=== PATIENT | male | born 1935 | race African-American/Black ===

== ENCOUNTER 2018-06-04 14:25 | Inpatient (IN) | payer MEDICARE, OTHER ==
[~2018-06-04] VITALS: Ht 177.8 cm; Wt 51.3 kg
[2018-06-04] MEDS ORDERED: IV NORMAL SALINE 1000ML BAG 1,000 ML IV ONE (15:15)
[2018-06-04] MEDS ORDERED: ONDANSETRON PF 4 MG/2 ML VIAL. IV ONE (15:15)
[2018-06-04 15:23] LABS: BASO % 0 % (0-3); EOS % 1 % (0-3); HEMATOCRIT 43.3 % (39.0-53.0); HEMOGLOBIN 14.7 g/dL (13.0-17.5); LYMPH # 1.1 x10^3/uL (1.0-4.8); LYMPH % 14 % (24-48); MEAN CORPUSCULAR HEMOGLOBIN 30 pg (25-35); MEAN CORPUSCULAR HGB CONC 34 g/dL (31-37); MEAN CORPUSCULAR VOLUME 87 fL (79-100); MONO # 0.9 x10^3/uL (0.0-1.1); MONO % 12 % (0-9); NEUT # 5.8 x10^3uL (1.8-7.7); NEUT % 74 % (31-73); PLATELET COUNT 303 x10^3/uL (140-400); RED CELL DISTRIBUTION WIDTH 12.8 % (11.5-14.5); WHITE BLOOD COUNT 7.9 x10^3/uL (4.0-11.0)
[2018-06-04 15:34] LABS: CREATININE 1.2 mg/dL (0.7-1.3); POTASSIUM 3.9 mmol/L (3.5-5.1)
[2018-06-04 15:37] LABS: ALBUMIN 3.4 g/dL (3.4-5.0); ALBUMIN/GLOBULIN RATIO 0.9 (1.0-1.7); TOTAL BILIRUBIN 0.5 mg/dL (0.2-1.0); TOTAL PROTEIN 7.3 g/dL (6.4-8.2)
[2018-06-04] MEDS ORDERED: IOHEXOL 240 MG/ML 50ML VIAL. PO ONE (17:30)
[2018-06-04] MEDS ORDERED: CONTRAST GIVEN. MC PRN (17:30)
[2018-06-04] MEDS ORDERED: IOHEXOL 300 MG/ML 100ML VIAL. IV ONE (17:30)
[2018-06-04 18:16] LABS: BILIRUBIN,URINE NEGATIVE (NEG); CLARITY,URINE CLEAR; COLOR,URINE YELLOW; NITRITE,URINE NEGATIVE (NEG); PH,URINE 5.5; PROTEIN,URINE NEGATIVE (NEG-TRACE); UROBILINOGEN,URINE 0.2 mg/dL (0.2 mg/dL)
[2018-06-04 18:27] LABS: BACTERIA,URINE 0 /HPF (0-FEW); HYALINE CASTS, URINE MANY /HPF; RBC,URINE 0 /HPF (0-2); WBC,URINE OCC /HPF (0-4)
--- NOTE | 2018-06-04 18:33 | RAD ---
CT study of the abdomen and pelvis with contrast Clinical indications: Mid abdominal pain. TECHNIQUE: After IV infusion of 60 cc of Omnipaque 300, helical CT scanning of the abdomen and pelvis was performed. GI contrast was administered per mouth. PQRS compliance Statement One or more of the following individualized dose reduction techniques were utilized for this study: 1. Automated exposure control 2. Adjustment of the mA and/or kV according to patient size 3. Use of iterative reconstruction technique COMPARISON: None available. FINDINGS: Small hepatic cysts are seen. The gallbladder is normal and is not distended. However, there is dilatation of the biliary tree down into the common bile duct area. The common bile duct measures up to 11 mm in caliber. Main pancreatic duct is mildly prominent within the head of the pancreas as well measuring up to 3 mm in caliber. No pancreatic mass is seen. No adrenal gland mass is seen. Both kidneys are normal without hydronephrosis or renal mass. Urinary bladder wall is smooth. No obstructive bowel pattern is evident. No free intraperitoneal air or free fluid is seen. The appendix is not identified. There are no secondary CT findings of appendicitis. No lung base consolidation is evident. No lytic process is evident. IMPRESSION: Dilatation of the biliary tree down into the common bile duct with mild dilatation of the main pancreatic duct. This may be due to a distal common bile duct stone or obstruction. Electronically signed by: Lico Geiger MD (06/04/2018 6:30 PM) [facility]
--- NOTE | 2018-06-04 18:47 | PHYS DOC ---
Past Medical History Past Medical History: Hypertension (JOSE R FLYNNSANTA Almonte APRN) Past Surgical History: No Surgical History (JOSE R FLYNNSANTA Almonte APRN) Alcohol Use: None Drug Use: None (JOANNE FLYNNVERNA Almonte APRN) Adult General Chief Complaint Chief Complaint: Congestion HPI HPI Patient is a 82 year old male who presents with upper abdominal pain and nausea. The patient feels like he needs to spit up his secretions. He states that if he swallows his spit he becomes more nauseated. His family members state that he is normally extremely healthy and they are worried because he requested to come to the hospital tonight. The patient states that he generally does not feel well. He denies chest pain, constipation or diarrhea, coffee- ground emesis or fever. (RINAJOSE RLYNNSANTA Almonte APRN) Review of Systems Review of Systems Constitutional: Denies fever or chills [] Eyes: Denies change in visual acuity, redness, or eye pain [] HENT: Denies nasal congestion or sore throat [] Respiratory: Denies cough or shortness of breath [] Cardiovascular: No additional information not addressed in HPI [] GI: See history of present illness : Denies dysuria or hematuria [] Musculoskeletal: Denies back pain or joint pain [] Integument: Denies rash or skin lesions [] Neurologic: Denies headache, focal weakness or sensory changes [] Endocrine: Denies polyuria or polydipsia [] All other systems were reviewed and found to be within normal limits, except as documented in this note. (RINALYNNSANTA Almonte APRN) Current Medications Current Medications Current Medications Medications (Trade) Dose Ordered Sig/Evan Start Time Stop Time Status Last Admin Dose Admin Info (CONTRAST GIVEN -- Rx MONITORING) 1 each PRN DAILY PRN 06/04/18 17:30 06/06/18 17:29 Iohexol (Omnipaque 240 Mg/ml) 30 ml 1X ONCE 06/04/18 17:30 06/04/18 17:31 DC 06/04/18 17:40 30 ML Iohexol (Omnipaque 300 Mg/ml) 60 ml 1X ONCE 06/04/18 17:30 06/04/18 17:31 DC 06/04/18 17:40 60 ML Ondansetron HCl (Zofran) 4 mg 1X ONCE 06/04/18 15:15 3/8/19 15:52 DC 06/04/18 15:15 4 MG Sodium Chloride 1,000 ml @ 1,000 mls/hr 1X ONCE 06/04/18 15:15 06/04/18 16:14 DC 06/04/18 16:18 1,000 MLS/HR (LEANDRO CASTILLO MD) Allergies Allergies Allergies Coded Allergies Type Severity Reaction Last Updated Verified No Known Drug Allergies 06/04/18 No (LEANDRO CASTILLO MD) Physical Exam Physical Exam Constitutional: Well developed, well nourished, no acute distress, non-toxic appearance. [] Cardiovascular:Heart rate regular rhythm, no murmur [] Lungs & Thorax: Bilateral breath sounds clear to auscultation [] Abdomen: Bowel sounds normal, firm, epigastric tenderness, no masses, no pulsatile masses. [] Skin: Warm, dry, no erythema, no rash. [] Back: No tenderness, no CVA tenderness. [] Extremities: No tenderness, no cyanosis, no clubbing, ROM intact, no edema. [] Neurologic: Alert and oriented X 3, normal motor function, normal sensory function, no focal deficits noted. [] Psychologic: Affect normal, judgement normal, mood normal. [] (LYNN FLYNN APRN) Current Patient Data Vital Signs Vital Signs Date Time Temp Pulse Resp B/P (MAP) Pulse Ox O2 Delivery O2 Flow Rate FiO2 06/04/18 18:45 65 20 133/65 (87) 99 Room Air 06/04/18 14:45 97.8 97.8 (LEANDRO CASTILLO MD) Lab Values Laboratory Tests Test 06/04/18 15:17 06/04/18 18:09 White Blood Count 7.9 x10^3/uL (4.0-11.0) Red Blood Count 5.00 x10^6/uL (4.30-5.70) Hemoglobin 14.7 g/dL (13.0-17.5) Hematocrit 43.3 % (39.0-53.0) Mean Corpuscular Volume 87 fL (79-100) Mean Corpuscular Hemoglobin 30 pg (25-35) Mean Corpuscular Hemoglobin Concent 34 g/dL (31-37) Red Cell Distribution Width 12.8 % (11.5-14.5) Platelet Count 303 x10^3/uL (140-400) Neutrophils (%) (Auto) 74 % (31-73) H Lymphocytes (%) (Auto) 14 % (24-48) L Monocytes (%) (Auto) 12 % (0-9) H Eosinophils (%) (Auto) 1 % (0-3) Basophils (%) (Auto) 0 % (0-3) Neutrophils # (Auto) 5.8 x10^3uL (1.8-7.7) Lymphocytes # (Auto) 1.1 x10^3/uL (1.0-4.8) Monocytes # (Auto) 0.9 x10^3/uL (0.0-1.1) Eosinophils # (Auto) 0.0 x10^3/uL (0.0-0.7) Basophils # (Auto) 0.0 x10^3/uL (0.0-0.2) Sodium Level 136 mmol/L (136-145) Potassium Level 3.9 mmol/L (3.5-5.1) Chloride Level 97 mmol/L (98-107) L Carbon Dioxide Level 27 mmol/L (21-32) Anion Gap 12 (6-14) Blood Urea Nitrogen 31 mg/dL (8-26) H Creatinine 1.2 mg/dL (0.7-1.3) Estimated GFR (Cockcroft-Gault) 58.0 BUN/Creatinine Ratio 26 (6-20) H Glucose Level 128 mg/dL (70-99) H Calcium Level 9.0 mg/dL (8.5-10.1) Total Bilirubin 0.5 mg/dL (0.2-1.0) Aspartate Amino Transferase (AST) 16 U/L (15-37) Alanine Aminotransferase (ALT) 16 U/L (16-63) Alkaline Phosphatase 72 U/L (46-116) Troponin I Quantitative < 0.017 ng/mL (0.000-0.055) Total Protein 7.3 g/dL (6.4-8.2) Albumin 3.4 g/dL (3.4-5.0) Albumin/Globulin Ratio 0.9 (1.0-1.7) L Amylase Level 47 U/L (25-115) Lipase 84 U/L (73-393) Urine Collection Type Unknown Urine Color Yellow Urine Clarity Clear Urine pH 5.5 Urine Specific [place] 1.025 Urine Protein Negative mg/dL (NEG-TRACE) Urine Glucose (UA) Negative mg/dL (NEG) Urine Ketones (Stick) 15 mg/dL (NEG) Urine Blood Negative (NEG) Urine Nitrite Negative (NEG) Urine Bilirubin Negative (NEG) Urine Urobilinogen Dipstick 0.2 mg/dL (0.2 mg/dL) Urine Leukocyte Esterase Negative (NEG) Urine RBC 0 /HPF (0-2) Urine WBC Occ /HPF (0-4) Urine Bacteria 0 /HPF (0-FEW) Urine Hyaline Casts Many /HPF Urine Mucus Mod /LPF Laboratory Tests 06/04/18 15:17 Laboratory Tests 06/04/18 15:17 (LEANDRO CASTILLO MD) EKG EKG [] (LYNN FLYNN APRN) Radiology/Procedures Radiology/Procedures []PATIENT: RACHEL HERNANDEZACCOUNT: [id number]#: [id number] : 1935 LOCATION: ER AGE: 82 SEX: M EXAM STATUS: REG ER ORD. PHYSICIAN: LYNN FLYNN APRN REASON: mid abdominal pain PROCEDURE: CT ABD PELV W/ORAL&IV CONTRAST CT study of the abdomen and pelvis with contrast Clinical indications: Mid abdominal pain. TECHNIQUE: After IV infusion of 60 cc of Omnipaque 300, helical CT scanning of the abdomen and pelvis was performed. GI contrast was administered per mouth. PQRS compliance Statement One or more of the following individualized dose reduction techniques were utilized for this study: 1. Automated exposure control 2. Adjustment of the mA and/or kV according to patient size 3. Use of iterative reconstruction technique COMPARISON: None available. FINDINGS: Small hepatic cysts are seen. The gallbladder is normal and is not distended. However, there is dilatation of the biliary tree down into the common bile duct area. The common bile duct measures up to 11 mm in caliber. Main pancreatic duct is mildly prominent within the head of the pancreas as well measuring up to 3 mm in caliber. No pancreatic mass is seen. No adrenal gland mass is seen. Both kidneys are normal without hydronephrosis or renal mass. Urinary bladder wall is smooth. No obstructive bowel pattern is evident. No free intraperitoneal air or free fluid is seen. The appendix is not identified. There are no secondary CT findings of appendicitis. No lung base consolidation is evident. No lytic process is evident. IMPRESSION: Dilatation of the biliary tree down into the common bile duct with mild dilatation of the main pancreatic duct. This may be due to a distal common bile duct stone or obstruction. Electronically signed by: Lico Geiger MD (06/04/2018 6:30 PM) [facility] DICTATED and SIGNED BY: LICO GEIGER MD DATE: 06/04/181829 (LYNN FLYNN APRN) Course & Med Decision Making Course & Med Decision Making Pertinent Labs and Imaging studies reviewed. (See chart for details) []The patient has been admitted to Dr. Johnson's service. GI has been consulted in the care of this patient. (LYNN FLYNN APRN) Course & Med Decision Making Staff Physician Addendum: I was working in the ER during the course of this patient's visit. I was available for consultation as needed, but I was not directly involved in the care of this patient. (LEANDRO CASTILLO MD) Dragon Disclaimer Dragon Disclaimer This electronic medical record was generated, in whole or in part, using a voice recognition dictation system. (LYNN FLYNN APRN) Departure Departure Impression: Primary Impression: Abdominal pain Additional Impression: Nausea Disposition: 09 ADMITTED INPATIENT Admitting Physician: Other (LYNN FLYNN APRN) Condition: GOOD Referrals: ELVIS OCHOA MD (PCP) Problem Qualifiers LYNN FLYNN APRN Jun 04, 2018 18:47 LEANDRO CASTILLO MD Jun 05, 2018 05:45
[2018-06-04 18:59] LABS: AMYLASE 47 U/L (25-115); LIPASE 84 U/L (73-393)
[2018-06-04] MEDS ORDERED: ONDANSETRON PF 4 MG/2 ML VIAL. IV PRN (19:15)
[2018-06-04] MEDS ORDERED: fentaNYL PF VIAL 100 MCG/2 ML VIAL IV PRN (19:15)
--- NOTE | 2018-06-04 21:10 | NUR ---
Admission: The patient, RACHEL HERNANDEZ, 82 y/o, M admitted by MARISA PALUMBO MD, was given written information regarding hospital policies, unit procedures and contact persons. Patient was transported from ED to room 563 via wheelchair, VSS, no complaints of pain at this time . RN performed a head to toe assessment at that time. Valuables were checked and left with patient in the room. Orders were received and implemented, RN will continue to monitor closely.
[2018-06-04] MEDS: IV NORMAL SALINE 1000ML BAG 1,000 ML IV SCH (22:20)
[2018-06-04 22:40] VITALS: BP 142/70
[2018-06-04 22:41] VITALS: BP 142/70
--- NOTE | 2018-06-05 00:29 | PDOC1 ---
History and Physical Date of Admission Date of Admission 06/04/2018 Identification/Chief Complaint Chief Complaint I have mucous Source Source: Chart review, Patient History of Present Illness History of Present Illness Patient is an 82 year old male with past medical history of hypertension who comes to the ED for complaints of abdominal discomfort. Patient is a poor historian and his only complain during my encounter is that he has been taking Mucinex for about 2 weeks due to congestion and phlegm. He has to be redirectred to the compalint of abdominal discomfort which he does not seem to be very botheredc about at the time of admission. Patient was evaluated in the ED and found to have a mild dilatation of his CBD on CT of the abdomen. Patient denies nausea or vomiting. No recent dietary transgressions O sick contacts or travels outside the area has been reported. Patient denies fever chills no diaphoresis patient denies chest pain. Patient's appetite is adequate admitted stay hydrated. We were asked to admit the patient for evaluation of the abnormality found on CAT scan of his CBD and due to his advanced age. Past Medical History Cardiovascular: HTN Past Surgical History Past Surgical History: No pertinent history Social History Smoke: No ALCOHOL: none Drugs: None Current Problem List Problem List Problems Medical Problems: (1) Abdominal pain Status: Acute (2) Nausea Status: Acute Current Medications Current Medications Current Medications Medications (Trade) Dose Ordered Sig/Evan Start Time Stop Time Status Last Admin Dose Admin Fentanyl Citrate (Fentanyl 2ml Vial) 50 mcg PRN Q1HR PRN 06/04/18 19:15 06/05/18 19:14 Info (CONTRAST GIVEN -- Rx MONITORING) 1 each PRN DAILY PRN 06/04/18 17:30 06/06/18 17:29 Iohexol (Omnipaque 240 Mg/ml) 30 ml 1X ONCE 06/04/18 17:30 06/04/18 17:31 DC 06/04/18 17:40 30 ML Iohexol (Omnipaque 300 Mg/ml) 60 ml 1X ONCE 06/04/18 17:30 06/04/18 17:31 DC 06/04/18 17:40 60 ML Ondansetron HCl (Zofran) 4 mg PRN Q8HRS PRN 06/04/18 19:15 06/05/18 19:14 Sodium Chloride 1,000 ml @ 125 mls/hr Q8H 06/04/18 20:00 06/05/18 19:59 06/04/18 22:20 125 MLS/HR Allergies Allergies Allergies Coded Allergies Type Severity Reaction Last Updated Verified No Known Drug Allergies 06/04/18 No ROS Review of System CONSTITUTIONAL: No fever or chills EYES: No recent changes SKIN: No rash or itching CARDIOVASCULAR: No chest pain, syncope, palpitations, or edema RESPIRATORY: No SOB or cough GASTROINTESTINAL: No nausea, vomiting or abdominal pain NEUROLOGICAL: No headaches or weakness ENDOCRINE: No cold or heat intolerance GENITOURINARY: No urgency or frequency of urination MUSCULOSKELETAL: No back pain or joint pain LYMPHATICS: No enlarged lymph nodes PSYCHIATRIC: No anxiety or depression Physical Exam Physical Exam GEN.: No apparent distress. Alert and oriented. HEENT: Head is normocephalic, atraumatic NECK: Supple. LUNGS: Clear to auscultation. HEART: RRR, S1, S2 present. Peripheral pulses intact ABDOMEN: Soft, nontender. Positive bowel sounds. EXTREMITIES: Without any cyanosis. NEUROLOGIC: Normal speech, normal tone PSYCHIATRIC: Normal affect, normal mood. SKIN: No ulcerations Vitals Vitals Vital Signs Date Time Temp Pulse Resp B/P (MAP) Pulse Ox O2 Delivery O2 Flow Rate FiO2 06/04/18 22:41 99.5 68 16 142/70 (94) 100 Room Air 99.5 Labs Labs Laboratory Tests Test 06/04/18 15:17 06/04/18 18:09 White Blood Count 7.9 x10^3/uL (4.0-11.0) Red Blood Count 5.00 x10^6/uL (4.30-5.70) Hemoglobin 14.7 g/dL (13.0-17.5) Hematocrit 43.3 % (39.0-53.0) Mean Corpuscular Volume 87 fL (79-100) Mean Corpuscular Hemoglobin 30 pg (25-35) Mean Corpuscular Hemoglobin Concent 34 g/dL (31-37) Red Cell Distribution Width 12.8 % (11.5-14.5) Platelet Count 303 x10^3/uL (140-400) Neutrophils (%) (Auto) 74 % (31-73) Lymphocytes (%) (Auto) 14 % (24-48) Monocytes (%) (Auto) 12 % (0-9) Eosinophils (%) (Auto) 1 % (0-3) Basophils (%) (Auto) 0 % (0-3) Neutrophils # (Auto) 5.8 x10^3uL (1.8-7.7) Lymphocytes # (Auto) 1.1 x10^3/uL (1.0-4.8) Monocytes # (Auto) 0.9 x10^3/uL (0.0-1.1) Eosinophils # (Auto) 0.0 x10^3/uL (0.0-0.7) Basophils # (Auto) 0.0 x10^3/uL (0.0-0.2) Sodium Level 136 mmol/L (136-145) Potassium Level 3.9 mmol/L (3.5-5.1) Chloride Level 97 mmol/L (98-107) Carbon Dioxide Level 27 mmol/L (21-32) Anion Gap 12 (6-14) Blood Urea Nitrogen 31 mg/dL (8-26) Creatinine 1.2 mg/dL (0.7-1.3) Estimated GFR (Cockcroft-Gault) 58.0 BUN/Creatinine Ratio 26 (6-20) Glucose Level 128 mg/dL (70-99) Calcium Level 9.0 mg/dL (8.5-10.1) Total Bilirubin 0.5 mg/dL (0.2-1.0) Aspartate Amino Transf (AST/SGOT) 16 U/L (15-37) Alanine Aminotransferase (ALT/SGPT) 16 U/L (16-63) Alkaline Phosphatase 72 U/L (46-116) Troponin I Quantitative < 0.017 ng/mL (0.000-0.055) Total Protein 7.3 g/dL (6.4-8.2) Albumin 3.4 g/dL (3.4-5.0) Albumin/Globulin Ratio 0.9 (1.0-1.7) Amylase Level 47 U/L (25-115) Lipase 84 U/L (73-393) Urine Collection Type Unknown Urine Color Yellow Urine Clarity Clear Urine pH 5.5 Urine Specific [place] 1.025 Urine Protein Negative mg/dL (NEG-TRACE) Urine Glucose (UA) Negative mg/dL (NEG) Urine Ketones (Stick) 15 mg/dL (NEG) Urine Blood Negative (NEG) Urine Nitrite Negative (NEG) Urine Bilirubin Negative (NEG) Urine Urobilinogen Dipstick 0.2 mg/dL (0.2 mg/dL) Urine Leukocyte Esterase Negative (NEG) Urine RBC 0 /HPF (0-2) Urine WBC Occ /HPF (0-4) Urine Bacteria 0 /HPF (0-FEW) Urine Hyaline Casts Many /HPF Urine Mucus Mod /LPF Laboratory Tests Test 06/04/18 15:17 06/04/18 18:09 White Blood Count 7.9 x10^3/uL (4.0-11.0) Red Blood Count 5.00 x10^6/uL (4.30-5.70) Hemoglobin 14.7 g/dL (13.0-17.5) Hematocrit 43.3 % (39.0-53.0) Mean Corpuscular Volume 87 fL (79-100) Mean Corpuscular Hemoglobin 30 pg (25-35) Mean Corpuscular Hemoglobin Concent 34 g/dL (31-37) Red Cell Distribution Width 12.8 % (11.5-14.5) Platelet Count 303 x10^3/uL (140-400) Neutrophils (%) (Auto) 74 % (31-73) Lymphocytes (%) (Auto) 14 % (24-48) Monocytes (%) (Auto) 12 % (0-9) Eosinophils (%) (Auto) 1 % (0-3) Basophils (%) (Auto) 0 % (0-3) Neutrophils # (Auto) 5.8 x10^3uL (1.8-7.7) Lymphocytes # (Auto) 1.1 x10^3/uL (1.0-4.8) Monocytes # (Auto) 0.9 x10^3/uL (0.0-1.1) Eosinophils # (Auto) 0.0 x10^3/uL (0.0-0.7) Basophils # (Auto) 0.0 x10^3/uL (0.0-0.2) Sodium Level 136 mmol/L (136-145) Potassium Level 3.9 mmol/L (3.5-5.1) Chloride Level 97 mmol/L (98-107) Carbon Dioxide Level 27 mmol/L (21-32) Anion Gap 12 (6-14) Blood Urea Nitrogen 31 mg/dL (8-26) Creatinine 1.2 mg/dL (0.7-1.3) Estimated GFR (Cockcroft-Gault) 58.0 BUN/Creatinine Ratio 26 (6-20) Glucose Level 128 mg/dL (70-99) Calcium Level 9.0 mg/dL (8.5-10.1) Total Bilirubin 0.5 mg/dL (0.2-1.0) Aspartate Amino Transf (AST/SGOT) 16 U/L (15-37) Alanine Aminotransferase (ALT/SGPT) 16 U/L (16-63) Alkaline Phosphatase 72 U/L (46-116) Troponin I Quantitative < 0.017 ng/mL (0.000-0.055) Total Protein 7.3 g/dL (6.4-8.2) Albumin 3.4 g/dL (3.4-5.0) Albumin/Globulin Ratio 0.9 (1.0-1.7) Amylase Level 47 U/L (25-115) Lipase 84 U/L (73-393) Urine Collection Type Unknown Urine Color Yellow Urine Clarity Clear Urine pH 5.5 Urine Specific [place] 1.025 Urine Protein Negative mg/dL (NEG-TRACE) Urine Glucose (UA) Negative mg/dL (NEG) Urine Ketones (Stick) 15 mg/dL (NEG) Urine Blood Negative (NEG) Urine Nitrite Negative (NEG) Urine Bilirubin Negative (NEG) Urine Urobilinogen Dipstick 0.2 mg/dL (0.2 mg/dL) Urine Leukocyte Esterase Negative (NEG) Urine RBC 0 /HPF (0-2) Urine WBC Occ /HPF (0-4) Urine Bacteria 0 /HPF (0-FEW) Urine Hyaline Casts Many /HPF Urine Mucus Mod /LPF VTE Prophylaxis Ordered VTE Prophylaxis Devices: Yes VTE Pharmacological Prophylaxi: No Assessment/Plan Assessment/Plan Dilated common bile duct CT scan Abdominal pain as per ER report History of nausea for 2 weeks Essential hypertension Plan admit patient for observation IV fluid resuscitation has been then attending the Clear liquid diet GI consultation Further recommendations based on the clinical course DVT prophylaxis with BERNADETTE and MARISA Gomes MD Jun 05, 2018 00:29
[2018-06-05 02:50] VITALS: BP 140/70
[2018-06-05 04:38] LABS: BASO % 1 % (0-3); EOS % 1 % (0-3); HEMATOCRIT 38.3 % (39.0-53.0); HEMOGLOBIN 12.6 g/dL (13.0-17.5); LYMPH # 1.1 x10^3/uL (1.0-4.8); LYMPH % 17 % (24-48); MEAN CORPUSCULAR HEMOGLOBIN 29 pg (25-35); MEAN CORPUSCULAR HGB CONC 33 g/dL (31-37); MEAN CORPUSCULAR VOLUME 88 fL (79-100); MONO # 0.8 x10^3/uL (0.0-1.1); MONO % 13 % (0-9); NEUT # 4.3 x10^3uL (1.8-7.7); NEUT % 69 % (31-73); PLATELET COUNT 262 x10^3/uL (140-400); RED BLOOD COUNT 4.37 x10^6/uL (4.30-5.70); RED CELL DISTRIBUTION WIDTH 12.6 % (11.5-14.5); WHITE BLOOD COUNT 6.2 x10^3/uL (4.0-11.0)
[2018-06-05 05:05] LABS: CALCIUM 8.3 mg/dL (8.5-10.1); CREATININE 1.1 mg/dL (0.7-1.3); GFR 77.5; POTASSIUM 3.8 mmol/L (3.5-5.1)
[2018-06-05 06:56] VITALS: BP 143/75
--- NOTE | 2018-06-05 08:36 | EKG ---
[facility] [address] [place] [address] Test Date: 2018-06-04 Test Time: 15:38:04 Pat Name: RACHEL HERNANDEZ Department: Room: 563 1 Gender: M [employer]: : 1935 Requested By: LYNN FLYNN Order Number: [id number] Reading MD: Rolly Quinn MD Measurements Intervals [place] Rate: 76 P: 73 HI: 166 QRS: 64 QRSD: 82 T: 62 QT: 386 QTc: 434 Interpretive Statements SINUS RHYTHM Electronically Signed On 06-15-2018 21:38:42 CDT by Rolly Quinn MD
[2018-06-05] MEDS: IV NORMAL SALINE 1000ML BAG 1,000 ML IV SCH ×2 (10:34→17:10)
[2018-06-05 10:39] VITALS: BP 149/62
[2018-06-05] MEDS: ACETAMINOPHEN 325 MG TABLET. PO PRN (11:57)
[2018-06-05] MEDS ORDERED: MAGN400T3 PO (12:04)
[2018-06-05] MEDS ORDERED: AMLO5TAB10 PO (12:07)
[2018-06-05] MEDS ORDERED: LOSA50TA15 PO (12:07)
--- NOTE | 2018-06-05 12:58 | PDOC2 ---
CONSULT Date of Consult Date of Consult DATE: 06/05/18 TIME: 12:49 Reason for Consult Reason for Consult: vague abd pain, weight loss, poor appetite History of Present Illness Reason for Visit: This is a pleasant 82 yo male with history of poor appetite, weight loss, vague mild mid abd pain, and intermittent nausea and vomiting. He has remote history of bleeding peptic ulcers about 40 years ago. He has recent congestion, increased phlegm, irregular bowels with regular. loose or constipation, and some DARK stools, but without overt bleeding, and denies fever, jaundice, dysphagia. CT on admission showed dilated CBD and pancreatic duct without obvious mass, stone etc Past Medical History Cardiovascular: HTN GI: GI bleed, Peptic Ulcer disease Past Surgical History Past Surgical History: No pertinent history Social History No ALCOHOL: none Drugs: None Current Problem List Problem List Problems Medical Problems: (1) Abdominal pain Status: Acute (2) Nausea Status: Acute Current Medications Current Medications Current Medications Sodium Chloride 1,000 ml @ 1,000 mls/hr 1X ONCE IV Last administered on at 16:18; Start 06/04/18 at 15:15; Stop 06/04/18 at 16:14; Status DC Ondansetron HCl (Zofran) 4 mg 1X ONCE IV Last administered on 06/04/18at 15:15; Start 06/04/18 at 15:15; Stop 06/04/18 at 15:52; Status DC Iohexol (Omnipaque 240 Mg/ml) 30 ml 1X ONCE PO Last administered on 06/04/18at 17:40; Start 06/04/18 at 17:30; Stop 06/04/18 at 17:31; Status DC Iohexol (Omnipaque 300 Mg/ml) 60 ml 1X ONCE IV Last administered on 06/04/18at 17:40; Start 06/04/18 at 17:30; Stop 06/04/18 at 17:31; Status DC Info (CONTRAST GIVEN -- Rx MONITORING) 1 each PRN DAILY PRN MC SEE COMMENTS; Start 06/04/18 at 17:30; Stop 06/06/18 at 17:29 Ondansetron HCl (Zofran) 4 mg PRN Q8HRS PRN IV NAUSEA/VOMITING Last administered on 06/05/18at 05:17; Start 06/04/18 at 19:15; Stop 06/05/18 at 19:14 Fentanyl Citrate (Fentanyl 2ml Vial) 50 mcg PRN Q1HR PRN IV PAIN; Start at 19:15; Stop 06/05/18 at 19:14 Sodium Chloride 1,000 ml @ 125 mls/hr Q8H IV Last administered on 06/05/18at 10: 34; Start 06/04/18 at 20:00; Stop 06/05/18 at 19:59 Acetaminophen (Tylenol) 650 mg PRN Q6HRS PRN PO Fever Last administered on at 11:57; Start 06/05/18 at 01:45 Active Scripts Active Reported Losartan Potassium 50 Mg Tablet 100 Mg PO DAILY Amlodipine Besylate 5 Mg Tablet 5 Mg PO DAILY Magnesium Oxide 400 Mg Tablet 2 Tab PO DAILY Allergies Allergies: Coded Allergies: No Known Drug Allergies (Unverified , 06/04/18) ROS ENDOCRINE: YES: Unexpected Weight Changes Gastrointestinal: Yes Abdominal Pain Physical Exam General: Alert, Oriented X3, Other (thin with muscular wasting) HEENT: PERRLA Lungs: Clear to auscultation Heart: Regular rate, Normal S1, Normal S2 Abdomen: Normal bowel sounds, Soft, No tenderness, No hepatosplenomegaly Extremities: No clubbing, No cyanosis Neuro: Normal speech, Strength at 5/5 X4 ext Psych/Mental Status: Mental status NL Vitals VITALS Vital Signs Date Time Temp Pulse Resp B/P (MAP) Pulse Ox O2 Delivery O2 Flow Rate FiO2 06/05/18 10:39 98.3 66 18 149/62 (91) 98 Room Air 98.3 Labs Labs Laboratory Tests Test 06/04/18 15:17 06/04/18 18:09 06/05/18 04:05 White Blood Count 7.9 x10^3/uL (4.0-11.0) 6.2 x10^3/uL (4.0-11.0) Red Blood Count 5.00 x10^6/uL (4.30-5.70) 4.37 x10^6/uL (4.30-5.70) Hemoglobin 14.7 g/dL (13.0-17.5) 12.6 g/dL (13.0-17.5) Hematocrit 43.3 % (39.0-53.0) 38.3 % (39.0-53.0) Mean Corpuscular Volume 87 fL (79-100) 88 fL (79-100) Mean Corpuscular Hemoglobin 30 pg (25-35) 29 pg (25-35) Mean Corpuscular Hemoglobin Concent 34 g/dL (31-37) 33 g/dL (31-37) Red Cell Distribution Width 12.8 % (11.5-14.5) 12.6 % (11.5-14.5) Platelet Count 303 x10^3/uL (140-400) 262 x10^3/uL (140-400) Neutrophils (%) (Auto) 74 % (31-73) 69 % (31-73) Lymphocytes (%) (Auto) 14 % (24-48) 17 % (24-48) Monocytes (%) (Auto) 12 % (0-9) 13 % (0-9) Eosinophils (%) (Auto) 1 % (0-3) 1 % (0-3) Basophils (%) (Auto) 0 % (0-3) 1 % (0-3) Neutrophils # (Auto) 5.8 x10^3uL (1.8-7.7) 4.3 x10^3uL (1.8-7.7) Lymphocytes # (Auto) 1.1 x10^3/uL (1.0-4.8) 1.1 x10^3/uL (1.0-4.8) Monocytes # (Auto) 0.9 x10^3/uL (0.0-1.1) 0.8 x10^3/uL (0.0-1.1) Eosinophils # (Auto) 0.0 x10^3/uL (0.0-0.7) 0.0 x10^3/uL (0.0-0.7) Basophils # (Auto) 0.0 x10^3/uL (0.0-0.2) 0.0 x10^3/uL (0.0-0.2) Sodium Level 136 mmol/L (136-145) 135 mmol/L (136-145) Potassium Level 3.9 mmol/L (3.5-5.1) 3.8 mmol/L (3.5-5.1) Chloride Level 97 mmol/L (98-107) 101 mmol/L (98-107) Carbon Dioxide Level 27 mmol/L (21-32) 23 mmol/L (21-32) Anion Gap 12 (6-14) 11 (6-14) Blood Urea Nitrogen 31 mg/dL (8-26) 23 mg/dL (8-26) Creatinine 1.2 mg/dL (0.7-1.3) 1.1 mg/dL (0.7-1.3) Estimated GFR (Cockcroft-Gault) 58.0 77.5 BUN/Creatinine Ratio 26 (6-20) Glucose Level 128 mg/dL (70-99) 93 mg/dL (70-99) Calcium Level 9.0 mg/dL (8.5-10.1) 8.3 mg/dL (8.5-10.1) Total Bilirubin 0.5 mg/dL (0.2-1.0) Aspartate Amino Transf (AST/SGOT) 16 U/L (15-37) Alanine Aminotransferase (ALT/SGPT) 16 U/L (16-63) Alkaline Phosphatase 72 U/L (46-116) Troponin I Quantitative < 0.017 ng/mL (0.000-0.055) Total Protein 7.3 g/dL (6.4-8.2) Albumin 3.4 g/dL (3.4-5.0) Albumin/Globulin Ratio 0.9 (1.0-1.7) Amylase Level 47 U/L (25-115) Lipase 84 U/L (73-393) Urine Collection Type Unknown Urine Color Yellow Urine Clarity Clear Urine pH 5.5 Urine Specific [place] 1.025 Urine Protein Negative mg/dL (NEG-TRACE) Urine Glucose (UA) Negative mg/dL (NEG) Urine Ketones (Stick) 15 mg/dL (NEG) Urine Blood Negative (NEG) Urine Nitrite Negative (NEG) Urine Bilirubin Negative (NEG) Urine Urobilinogen Dipstick 0.2 mg/dL (0.2 mg/dL) Urine Leukocyte Esterase Negative (NEG) Urine RBC 0 /HPF (0-2) Urine WBC Occ /HPF (0-4) Urine Bacteria 0 /HPF (0-FEW) Urine Hyaline Casts Many /HPF Urine Mucus Mod /LPF Laboratory Tests Test 06/04/18 15:17 06/04/18 18:09 06/05/18 04:05 White Blood Count 7.9 x10^3/uL (4.0-11.0) 6.2 x10^3/uL (4.0-11.0) Red Blood Count 5.00 x10^6/uL (4.30-5.70) 4.37 x10^6/uL (4.30-5.70) Hemoglobin 14.7 g/dL (13.0-17.5) 12.6 g/dL (13.0-17.5) Hematocrit 43.3 % (39.0-53.0) 38.3 % (39.0-53.0) Mean Corpuscular Volume 87 fL (79-100) 88 fL (79-100) Mean Corpuscular Hemoglobin 30 pg (25-35) 29 pg (25-35) Mean Corpuscular Hemoglobin Concent 34 g/dL (31-37) 33 g/dL (31-37) Red Cell Distribution Width 12.8 % (11.5-14.5) 12.6 % (11.5-14.5) Platelet Count 303 x10^3/uL (140-400) 262 x10^3/uL (140-400) Neutrophils (%) (Auto) 74 % (31-73) 69 % (31-73) Lymphocytes (%) (Auto) 14 % (24-48) 17 % (24-48) Monocytes (%) (Auto) 12 % (0-9) 13 % (0-9) Eosinophils (%) (Auto) 1 % (0-3) 1 % (0-3) Basophils (%) (Auto) 0 % (0-3) 1 % (0-3) Neutrophils # (Auto) 5.8 x10^3uL (1.8-7.7) 4.3 x10^3uL (1.8-7.7) Lymphocytes # (Auto) 1.1 x10^3/uL (1.0-4.8) 1.1 x10^3/uL (1.0-4.8) Monocytes # (Auto) 0.9 x10^3/uL (0.0-1.1) 0.8 x10^3/uL (0.0-1.1) Eosinophils # (Auto) 0.0 x10^3/uL (0.0-0.7) 0.0 x10^3/uL (0.0-0.7) Basophils # (Auto) 0.0 x10^3/uL (0.0-0.2) 0.0 x10^3/uL (0.0-0.2) Sodium Level 136 mmol/L (136-145) 135 mmol/L (136-145) Potassium Level 3.9 mmol/L (3.5-5.1) 3.8 mmol/L (3.5-5.1) Chloride Level 97 mmol/L (98-107) 101 mmol/L (98-107) Carbon Dioxide Level 27 mmol/L (21-32) 23 mmol/L (21-32) Anion Gap 12 (6-14) 11 (6-14) Blood Urea Nitrogen 31 mg/dL (8-26) 23 mg/dL (8-26) Creatinine 1.2 mg/dL (0.7-1.3) 1.1 mg/dL (0.7-1.3) Estimated GFR (Cockcroft-Gault) 58.0 77.5 BUN/Creatinine Ratio 26 (6-20) Glucose Level 128 mg/dL (70-99) 93 mg/dL (70-99) Calcium Level 9.0 mg/dL (8.5-10.1) 8.3 mg/dL (8.5-10.1) Total Bilirubin 0.5 mg/dL (0.2-1.0) Aspartate Amino Transf (AST/SGOT) 16 U/L (15-37) Alanine Aminotransferase (ALT/SGPT) 16 U/L (16-63) Alkaline Phosphatase 72 U/L (46-116) Troponin I Quantitative < 0.017 ng/mL (0.000-0.055) Total Protein 7.3 g/dL (6.4-8.2) Albumin 3.4 g/dL (3.4-5.0) Albumin/Globulin Ratio 0.9 (1.0-1.7) Amylase Level 47 U/L (25-115) Lipase 84 U/L (73-393) Urine Collection Type Unknown Urine Color Yellow Urine Clarity Clear Urine pH 5.5 Urine Specific [place] 1.025 Urine Protein Negative mg/dL (NEG-TRACE) Urine Glucose (UA) Negative mg/dL (NEG) Urine Ketones (Stick) 15 mg/dL (NEG) Urine Blood Negative (NEG) Urine Nitrite Negative (NEG) Urine Bilirubin Negative (NEG) Urine Urobilinogen Dipstick 0.2 mg/dL (0.2 mg/dL) Urine Leukocyte Esterase Negative (NEG) Urine RBC 0 /HPF (0-2) Urine WBC Occ /HPF (0-4) Urine Bacteria 0 /HPF (0-FEW) Urine Hyaline Casts Many /HPF Urine Mucus Mod /LPF Images Images CT- with CBD of 11 mm and dilated pancreatic duct Assessment/Plan Assessment/Plan Vague abd pain but with anorexia, poor appetite, weight loss. Has history of PUD but x rays show dilated CBD with normal gallbladder and dilated pancreatic duct. We dont have old films to compare- could this be ampullary tumor, stricture, stone or just chronic changes. The normal LFTS and lipase speak against obstruction, but with weight loss, I am concerned about occult malignancy. Also consider PUD with dark stools and prior history Plan- PPI diet MRCP CA 19-9 Consider EGD PAU MILLER MD Jun 05, 2018 12:58
[2018-06-05] MEDS ORDERED: MAGNESIUM HYDROXIDE 2,400 MG/30 ML ORAL.SUSP. PO PRN (13:00)
--- NOTE | 2018-06-05 13:30 | PDOC ---
PROGRESS NOTES Chief Complaint Chief Complaint Dilated common bile duct CT scan Abdominal pain as per ER report History of nausea for 2 weeks Essential hypertension Medication adverse effect? We'll review home medications and resume as appropriate Clear liquid diet GI consultation Further recommendations based on the clinical course DVT prophylaxis with SCD and teds History of Present Illness History of Present Illness Patient resting comfortably. History taking was aided by patient's daughter who were at bedside nor the phone and there were some changes recently to his hypertensive medications that probably gave him the symptoms that he has been mostly complaining about which is upper respiratory tract secretions and excessive phlegm. Vitals Vitals Vital Signs Date Time Temp Pulse Resp B/P (MAP) Pulse Ox O2 Delivery O2 Flow Rate FiO2 06/05/18 10:39 98.3 66 18 149/62 (91) 98 Room Air 98.3 Physical Exam General: Alert, Oriented X3, Other (thin with muscular wasting) Heart: Regular rate, Normal S1, Normal S2 Abdomen: Normal bowel sounds, Soft, No tenderness, No hepatosplenomegaly Extremities: No clubbing, No cyanosis Labs LABS Laboratory Tests Test 06/04/18 15:17 06/04/18 18:09 06/05/18 04:05 White Blood Count 7.9 x10^3/uL (4.0-11.0) 6.2 x10^3/uL (4.0-11.0) Red Blood Count 5.00 x10^6/uL (4.30-5.70) 4.37 x10^6/uL (4.30-5.70) Hemoglobin 14.7 g/dL (13.0-17.5) 12.6 g/dL (13.0-17.5) Hematocrit 43.3 % (39.0-53.0) 38.3 % (39.0-53.0) Mean Corpuscular Volume 87 fL (79-100) 88 fL (79-100) Mean Corpuscular Hemoglobin 30 pg (25-35) 29 pg (25-35) Mean Corpuscular Hemoglobin Concent 34 g/dL (31-37) 33 g/dL (31-37) Red Cell Distribution Width 12.8 % (11.5-14.5) 12.6 % (11.5-14.5) Platelet Count 303 x10^3/uL (140-400) 262 x10^3/uL (140-400) Neutrophils (%) (Auto) 74 % (31-73) 69 % (31-73) Lymphocytes (%) (Auto) 14 % (24-48) 17 % (24-48) Monocytes (%) (Auto) 12 % (0-9) 13 % (0-9) Eosinophils (%) (Auto) 1 % (0-3) 1 % (0-3) Basophils (%) (Auto) 0 % (0-3) 1 % (0-3) Neutrophils # (Auto) 5.8 x10^3uL (1.8-7.7) 4.3 x10^3uL (1.8-7.7) Lymphocytes # (Auto) 1.1 x10^3/uL (1.0-4.8) 1.1 x10^3/uL (1.0-4.8) Monocytes # (Auto) 0.9 x10^3/uL (0.0-1.1) 0.8 x10^3/uL (0.0-1.1) Eosinophils # (Auto) 0.0 x10^3/uL (0.0-0.7) 0.0 x10^3/uL (0.0-0.7) Basophils # (Auto) 0.0 x10^3/uL (0.0-0.2) 0.0 x10^3/uL (0.0-0.2) Sodium Level 136 mmol/L (136-145) 135 mmol/L (136-145) Potassium Level 3.9 mmol/L (3.5-5.1) 3.8 mmol/L (3.5-5.1) Chloride Level 97 mmol/L (98-107) 101 mmol/L (98-107) Carbon Dioxide Level 27 mmol/L (21-32) 23 mmol/L (21-32) Anion Gap 12 (6-14) 11 (6-14) Blood Urea Nitrogen 31 mg/dL (8-26) 23 mg/dL (8-26) Creatinine 1.2 mg/dL (0.7-1.3) 1.1 mg/dL (0.7-1.3) Estimated GFR (Cockcroft-Gault) 58.0 77.5 BUN/Creatinine Ratio 26 (6-20) Glucose Level 128 mg/dL (70-99) 93 mg/dL (70-99) Calcium Level 9.0 mg/dL (8.5-10.1) 8.3 mg/dL (8.5-10.1) Total Bilirubin 0.5 mg/dL (0.2-1.0) Aspartate Amino Transf (AST/SGOT) 16 U/L (15-37) Alanine Aminotransferase (ALT/SGPT) 16 U/L (16-63) Alkaline Phosphatase 72 U/L (46-116) Troponin I Quantitative < 0.017 ng/mL (0.000-0.055) Total Protein 7.3 g/dL (6.4-8.2) Albumin 3.4 g/dL (3.4-5.0) Albumin/Globulin Ratio 0.9 (1.0-1.7) Amylase Level 47 U/L (25-115) Lipase 84 U/L (73-393) Urine Collection Type Unknown Urine Color Yellow Urine Clarity Clear Urine pH 5.5 Urine Specific [place] 1.025 Urine Protein Negative mg/dL (NEG-TRACE) Urine Glucose (UA) Negative mg/dL (NEG) Urine Ketones (Stick) 15 mg/dL (NEG) Urine Blood Negative (NEG) Urine Nitrite Negative (NEG) Urine Bilirubin Negative (NEG) Urine Urobilinogen Dipstick 0.2 mg/dL (0.2 mg/dL) Urine Leukocyte Esterase Negative (NEG) Urine RBC 0 /HPF (0-2) Urine WBC Occ /HPF (0-4) Urine Bacteria 0 /HPF (0-FEW) Urine Hyaline Casts Many /HPF Urine Mucus Mod /LPF Assessment and Plan Assessmemt and Plan Problems Medical Problems: (1) Abdominal pain Status: Acute (2) Nausea Status: Acute Comment Review of Relevant I have reviewed the following items raman (where applicable) has been applied. Labs Laboratory Tests Test 06/04/18 15:17 06/04/18 18:09 06/05/18 04:05 White Blood Count 7.9 x10^3/uL (4.0-11.0) 6.2 x10^3/uL (4.0-11.0) Red Blood Count 5.00 x10^6/uL (4.30-5.70) 4.37 x10^6/uL (4.30-5.70) Hemoglobin 14.7 g/dL (13.0-17.5) 12.6 g/dL (13.0-17.5) Hematocrit 43.3 % (39.0-53.0) 38.3 % (39.0-53.0) Mean Corpuscular Volume 87 fL (79-100) 88 fL (79-100) Mean Corpuscular Hemoglobin 30 pg (25-35) 29 pg (25-35) Mean Corpuscular Hemoglobin Concent 34 g/dL (31-37) 33 g/dL (31-37) Red Cell Distribution Width 12.8 % (11.5-14.5) 12.6 % (11.5-14.5) Platelet Count 303 x10^3/uL (140-400) 262 x10^3/uL (140-400) Neutrophils (%) (Auto) 74 % (31-73) 69 % (31-73) Lymphocytes (%) (Auto) 14 % (24-48) 17 % (24-48) Monocytes (%) (Auto) 12 % (0-9) 13 % (0-9) Eosinophils (%) (Auto) 1 % (0-3) 1 % (0-3) Basophils (%) (Auto) 0 % (0-3) 1 % (0-3) Neutrophils # (Auto) 5.8 x10^3uL (1.8-7.7) 4.3 x10^3uL (1.8-7.7) Lymphocytes # (Auto) 1.1 x10^3/uL (1.0-4.8) 1.1 x10^3/uL (1.0-4.8) Monocytes # (Auto) 0.9 x10^3/uL (0.0-1.1) 0.8 x10^3/uL (0.0-1.1) Eosinophils # (Auto) 0.0 x10^3/uL (0.0-0.7) 0.0 x10^3/uL (0.0-0.7) Basophils # (Auto) 0.0 x10^3/uL (0.0-0.2) 0.0 x10^3/uL (0.0-0.2) Sodium Level 136 mmol/L (136-145) 135 mmol/L (136-145) Potassium Level 3.9 mmol/L (3.5-5.1) 3.8 mmol/L (3.5-5.1) Chloride Level 97 mmol/L (98-107) 101 mmol/L (98-107) Carbon Dioxide Level 27 mmol/L (21-32) 23 mmol/L (21-32) Anion Gap 12 (6-14) 11 (6-14) Blood Urea Nitrogen 31 mg/dL (8-26) 23 mg/dL (8-26) Creatinine 1.2 mg/dL (0.7-1.3) 1.1 mg/dL (0.7-1.3) Estimated GFR (Cockcroft-Gault) 58.0 77.5 BUN/Creatinine Ratio 26 (6-20) Glucose Level 128 mg/dL (70-99) 93 mg/dL (70-99) Calcium Level 9.0 mg/dL (8.5-10.1) 8.3 mg/dL (8.5-10.1) Total Bilirubin 0.5 mg/dL (0.2-1.0) Aspartate Amino Transf (AST/SGOT) 16 U/L (15-37) Alanine Aminotransferase (ALT/SGPT) 16 U/L (16-63) Alkaline Phosphatase 72 U/L (46-116) Troponin I Quantitative < 0.017 ng/mL (0.000-0.055) Total Protein 7.3 g/dL (6.4-8.2) Albumin 3.4 g/dL (3.4-5.0) Albumin/Globulin Ratio 0.9 (1.0-1.7) Amylase Level 47 U/L (25-115) Lipase 84 U/L (73-393) Urine Collection Type Unknown Urine Color Yellow Urine Clarity Clear Urine pH 5.5 Urine Specific [place] 1.025 Urine Protein Negative mg/dL (NEG-TRACE) Urine Glucose (UA) Negative mg/dL (NEG) Urine Ketones (Stick) 15 mg/dL (NEG) Urine Blood Negative (NEG) Urine Nitrite Negative (NEG) Urine Bilirubin Negative (NEG) Urine Urobilinogen Dipstick 0.2 mg/dL (0.2 mg/dL) Urine Leukocyte Esterase Negative (NEG) Urine RBC 0 /HPF (0-2) Urine WBC Occ /HPF (0-4) Urine Bacteria 0 /HPF (0-FEW) Urine Hyaline Casts Many /HPF Urine Mucus Mod /LPF Laboratory Tests Test 06/04/18 15:17 06/04/18 18:09 06/05/18 04:05 White Blood Count 7.9 x10^3/uL (4.0-11.0) 6.2 x10^3/uL (4.0-11.0) Red Blood Count 5.00 x10^6/uL (4.30-5.70) 4.37 x10^6/uL (4.30-5.70) Hemoglobin 14.7 g/dL (13.0-17.5) 12.6 g/dL (13.0-17.5) Hematocrit 43.3 % (39.0-53.0) 38.3 % (39.0-53.0) Mean Corpuscular Volume 87 fL (79-100) 88 fL (79-100) Mean Corpuscular Hemoglobin 30 pg (25-35) 29 pg (25-35) Mean Corpuscular Hemoglobin Concent 34 g/dL (31-37) 33 g/dL (31-37) Red Cell Distribution Width 12.8 % (11.5-14.5) 12.6 % (11.5-14.5) Platelet Count 303 x10^3/uL (140-400) 262 x10^3/uL (140-400) Neutrophils (%) (Auto) 74 % (31-73) 69 % (31-73) Lymphocytes (%) (Auto) 14 % (24-48) 17 % (24-48) Monocytes (%) (Auto) 12 % (0-9) 13 % (0-9) Eosinophils (%) (Auto) 1 % (0-3) 1 % (0-3) Basophils (%) (Auto) 0 % (0-3) 1 % (0-3) Neutrophils # (Auto) 5.8 x10^3uL (1.8-7.7) 4.3 x10^3uL (1.8-7.7) Lymphocytes # (Auto) 1.1 x10^3/uL (1.0-4.8) 1.1 x10^3/uL (1.0-4.8) Monocytes # (Auto) 0.9 x10^3/uL (0.0-1.1) 0.8 x10^3/uL (0.0-1.1) Eosinophils # (Auto) 0.0 x10^3/uL (0.0-0.7) 0.0 x10^3/uL (0.0-0.7) Basophils # (Auto) 0.0 x10^3/uL (0.0-0.2) 0.0 x10^3/uL (0.0-0.2) Sodium Level 136 mmol/L (136-145) 135 mmol/L (136-145) Potassium Level 3.9 mmol/L (3.5-5.1) 3.8 mmol/L (3.5-5.1) Chloride Level 97 mmol/L (98-107) 101 mmol/L (98-107) Carbon Dioxide Level 27 mmol/L (21-32) 23 mmol/L (21-32) Anion Gap 12 (6-14) 11 (6-14) Blood Urea Nitrogen 31 mg/dL (8-26) 23 mg/dL (8-26) Creatinine 1.2 mg/dL (0.7-1.3) 1.1 mg/dL (0.7-1.3) Estimated GFR (Cockcroft-Gault) 58.0 77.5 BUN/Creatinine Ratio 26 (6-20) Glucose Level 128 mg/dL (70-99) 93 mg/dL (70-99) Calcium Level 9.0 mg/dL (8.5-10.1) 8.3 mg/dL (8.5-10.1) Total Bilirubin 0.5 mg/dL (0.2-1.0) Aspartate Amino Transf (AST/SGOT) 16 U/L (15-37) Alanine Aminotransferase (ALT/SGPT) 16 U/L (16-63) Alkaline Phosphatase 72 U/L (46-116) Troponin I Quantitative < 0.017 ng/mL (0.000-0.055) Total Protein 7.3 g/dL (6.4-8.2) Albumin 3.4 g/dL (3.4-5.0) Albumin/Globulin Ratio 0.9 (1.0-1.7) Amylase Level 47 U/L (25-115) Lipase 84 U/L (73-393) Urine Collection Type Unknown Urine Color Yellow Urine Clarity Clear Urine pH 5.5 Urine Specific [place] 1.025 Urine Protein Negative mg/dL (NEG-TRACE) Urine Glucose (UA) Negative mg/dL (NEG) Urine Ketones (Stick) 15 mg/dL (NEG) Urine Blood Negative (NEG) Urine Nitrite Negative (NEG) Urine Bilirubin Negative (NEG) Urine Urobilinogen Dipstick 0.2 mg/dL (0.2 mg/dL) Urine Leukocyte Esterase Negative (NEG) Urine RBC 0 /HPF (0-2) Urine WBC Occ /HPF (0-4) Urine Bacteria 0 /HPF (0-FEW) Urine Hyaline Casts Many /HPF Urine Mucus Mod /LPF Medications Current Medications Sodium Chloride 1,000 ml @ 1,000 mls/hr 1X ONCE IV Last administered on at 16:18; Start 06/04/18 at 15:15; Stop 06/04/18 at 16:14; Status DC Ondansetron HCl (Zofran) 4 mg 1X ONCE IV Last administered on 06/04/18at 15:15; Start 06/04/18 at 15:15; Stop 06/04/18 at 15:52; Status DC Iohexol (Omnipaque 240 Mg/ml) 30 ml 1X ONCE PO Last administered on 06/04/18at 17:40; Start 06/04/18 at 17:30; Stop 06/04/18 at 17:31; Status DC Iohexol (Omnipaque 300 Mg/ml) 60 ml 1X ONCE IV Last administered on 06/04/18at 17:40; Start 06/04/18 at 17:30; Stop 06/04/18 at 17:31; Status DC Info (CONTRAST GIVEN -- Rx MONITORING) 1 each PRN DAILY PRN MC SEE COMMENTS; Start 06/04/18 at 17:30; Stop 06/06/18 at 17:29 Ondansetron HCl (Zofran) 4 mg PRN Q8HRS PRN IV NAUSEA/VOMITING Last administered on 06/05/18at 05:17; Start 06/04/18 at 19:15; Stop 06/05/18 at 19:14 Fentanyl Citrate (Fentanyl 2ml Vial) 50 mcg PRN Q1HR PRN IV PAIN; Start at 19:15; Stop 06/05/18 at 19:14 Sodium Chloride 1,000 ml @ 125 mls/hr Q8H IV Last administered on 06/05/18at 10: 34; Start 06/04/18 at 20:00; Stop 06/05/18 at 19:59 Acetaminophen (Tylenol) 650 mg PRN Q6HRS PRN PO Fever Last administered on at 11:57; Start 06/05/18 at 01:45 Magnesium Hydroxide (Milk Of Magnesia) 2,400 mg PRN DAILY PRN PO CONSTIPATION; Start 06/05/18 at 13:00 Active Scripts Active Reported Losartan Potassium 50 Mg Tablet 100 Mg PO DAILY Amlodipine Besylate 5 Mg Tablet 5 Mg PO DAILY Magnesium Oxide 400 Mg Tablet 2 Tab PO DAILY Vitals/I & O Vital Sign - Last 24 Hours 06/04/18 06/04/18 06/04/18 06/04/18 14:45 15:45 16:45 17:45 Temp 97.8 97.8 Pulse 87 78 68 69 Resp 20 23 21 20 B/P (MAP) 141/73 (95) 152/76 (101) 137/65 (89) 155/67 (96) Pulse Ox 100 99 98 99 O2 Delivery Room Air Room Air Room Air Room Air 06/04/18 06/04/18 06/04/18 06/04/18 18:45 19:45 20:30 21:10 Pulse 65 72 72 Resp 20 21 21 B/P (MAP) 133/65 (87) 128/61 (83) 109/55 (73) Pulse Ox 99 98 98 O2 Delivery Room Air Room Air Room Air Room Air 06/04/18 06/04/18 06/05/18 06/05/18 22:40 22:41 02:50 06:56 Temp 99.5 99.5 99.0 97.8 99.5 99.5 99.0 97.8 Pulse 68 68 67 63 Resp 16 16 16 18 B/P (MAP) 142/70 (94) 142/70 (94) 140/70 (93) 143/75 (97) Pulse Ox 100 100 100 99 O2 Delivery Room Air Room Air Room Air Room Air 06/05/18 10:39 Temp 98.3 98.3 Pulse 66 Resp 18 B/P (MAP) 149/62 (91) Pulse Ox 98 O2 Delivery Room Air Intake and Output 06/04/18 06/04/18 06/05/18 15:00 23:00 07:00 Intake Total 700 ml Balance 700 ml MARISA PALUMBO MD Jun 05, 2018 13:30
[2018-06-05 15:20] VITALS: BP 123/50
[2018-06-05] MEDS: LOSARTAN POTASSIUM 50 MG TABLET. PO SCH (15:46)
[2018-06-05] MEDS: amLODIPine BESYLATE 5 MG TABLET PO SCH (15:46)
--- NOTE | 2018-06-05 19:06 | NUR ---
MUFFLER TENDER came to this RN stating that this patient pulled his IV out. When this RN asked the patient how it was accidently removed and the patient stated that he was changing his clothes. The patient is currently wearing his street clothes at this time and has denied a hospital gown. This RN will attempt to start a new IV and will continue to monitor this patient.
[2018-06-05 19:36] VITALS: BP 136/70
[2018-06-05 23:20] VITALS: BP 142/64
[2018-06-06 03:09] VITALS: BP 121/54
[2018-06-06 07:00] VITALS: BP_SYST 133; BP_SYST 95; BP_DIAS 69; BP_DIAS 71
[2018-06-06] MEDS: amLODIPine BESYLATE 5 MG TABLET PO SCH (09:00)
[2018-06-06] MEDS: LOSARTAN POTASSIUM 50 MG TABLET. PO SCH (09:00)
--- NOTE | 2018-06-06 09:00 | NUR ---
The family expressed concerns about their patient dad wearing dirty clothes that were from three days prior. This RN spoke with the family, noting the patient had clean hospital gown at morning shift change, and had dressed himself with dirty street clothes after breakfast. The patient was showered, assisted by the nurse staff team and provided with a change of clean linens and clean hospital gown. The patient was also moved to a room closer to the nurse station for monitoring.
--- NOTE | 2018-06-06 10:05 | PDOC ---
GI PROGRESS NOTES Date Date/Time DATE: 06/06/18 TIME: 10:03 Subjective Subjective looks and feels better today- awaiting MRCP today Objective Vitals Vital Signs Date Time Temp Pulse Resp B/P (MAP) Pulse Ox O2 Delivery O2 Flow Rate FiO2 06/06/18 09:00 75 133/71 06/06/18 09:00 75 133/71 06/06/18 07:00 99.2 75 18 133/71 (91) 98 Room Air 99.2 06/06/18 03:09 98.7 57 18 121/54 (76) 100 Room Air 98.7 06/05/18 23:20 98.1 63 19 142/64 (90) 96 Room Air 98.1 06/05/18 20:00 Room Air 06/05/18 19:36 97.5 72 18 136/70 (92) 95 Room Air 97.5 06/05/18 15:46 75 123/50 06/05/18 15:46 75 123/50 06/05/18 15:20 98.7 75 16 123/50 (74) 96 Room Air 98.7 06/05/18 10:39 98.3 66 18 149/62 (91) 98 Room Air 98.3 Physical Exam Physical Exam Chest- clear abd soft nontender no masses thin Assessment Assessment Weight loss and poor appetite Abnormal CBD and pancreatic duct on CT Plan- MRCP today, CA 19-9 pending consider EGD later after MRCP results reviewed PAU MILLER MD Jun 06, 2018 10:05
[2018-06-06 11:00] VITALS: BP 125/61
--- NOTE | 2018-06-06 12:15 | PDOC ---
PROGRESS NOTES Chief Complaint Chief Complaint Dilated common bile duct CT scan Abdominal pain as per ER report History of nausea for 2 weeks resolved not patient has good appetite currently nothing by mouth for MRCP Essential hypertension Medication adverse effect? Continue current medications Clear liquid diet GI consultation accommodations greatly appreciated. We'll follow on CA 16/12 and results of MRCP Further recommendations based on the clinical course DVT prophylaxis with SCD and teds History of Present Illness History of Present Illness Patient resting comfortably. No concerns today and no complaints other than being nothing by mouth for his testing. No cough or phlegm was reported no abdominal pain has been reported no fever or chills reported overnight either. Plan of care discussed in detail Vitals Vitals Vital Signs Date Time Temp Pulse Resp B/P (MAP) Pulse Ox O2 Delivery O2 Flow Rate FiO2 06/06/18 11:00 98.4 78 19 125/61 (82) 97 Room Air 98.4 Physical Exam General: Alert, Oriented X3, Other (thin with muscular wasting) Heart: Regular rate, Normal S1, Normal S2 Abdomen: Normal bowel sounds, Soft, No tenderness, No hepatosplenomegaly Extremities: No clubbing, No cyanosis Review of Systems Review of Systems Tendon test. History of present illness otherwise 14 point review of systems negative Assessment and Plan Assessmemt and Plan Problems Medical Problems: (1) Abdominal pain Status: Acute (2) Nausea Status: Acute Comment Review of Relevant I have reviewed the following items raman (where applicable) has been applied. Labs Laboratory Tests Test 06/04/18 15:17 06/04/18 18:09 06/05/18 04:05 White Blood Count 7.9 x10^3/uL (4.0-11.0) 6.2 x10^3/uL (4.0-11.0) Red Blood Count 5.00 x10^6/uL (4.30-5.70) 4.37 x10^6/uL (4.30-5.70) Hemoglobin 14.7 g/dL (13.0-17.5) 12.6 g/dL (13.0-17.5) Hematocrit 43.3 % (39.0-53.0) 38.3 % (39.0-53.0) Mean Corpuscular Volume 87 fL (79-100) 88 fL (79-100) Mean Corpuscular Hemoglobin 30 pg (25-35) 29 pg (25-35) Mean Corpuscular Hemoglobin Concent 34 g/dL (31-37) 33 g/dL (31-37) Red Cell Distribution Width 12.8 % (11.5-14.5) 12.6 % (11.5-14.5) Platelet Count 303 x10^3/uL (140-400) 262 x10^3/uL (140-400) Neutrophils (%) (Auto) 74 % (31-73) 69 % (31-73) Lymphocytes (%) (Auto) 14 % (24-48) 17 % (24-48) Monocytes (%) (Auto) 12 % (0-9) 13 % (0-9) Eosinophils (%) (Auto) 1 % (0-3) 1 % (0-3) Basophils (%) (Auto) 0 % (0-3) 1 % (0-3) Neutrophils # (Auto) 5.8 x10^3uL (1.8-7.7) 4.3 x10^3uL (1.8-7.7) Lymphocytes # (Auto) 1.1 x10^3/uL (1.0-4.8) 1.1 x10^3/uL (1.0-4.8) Monocytes # (Auto) 0.9 x10^3/uL (0.0-1.1) 0.8 x10^3/uL (0.0-1.1) Eosinophils # (Auto) 0.0 x10^3/uL (0.0-0.7) 0.0 x10^3/uL (0.0-0.7) Basophils # (Auto) 0.0 x10^3/uL (0.0-0.2) 0.0 x10^3/uL (0.0-0.2) Sodium Level 136 mmol/L (136-145) 135 mmol/L (136-145) Potassium Level 3.9 mmol/L (3.5-5.1) 3.8 mmol/L (3.5-5.1) Chloride Level 97 mmol/L (98-107) 101 mmol/L (98-107) Carbon Dioxide Level 27 mmol/L (21-32) 23 mmol/L (21-32) Anion Gap 12 (6-14) 11 (6-14) Blood Urea Nitrogen 31 mg/dL (8-26) 23 mg/dL (8-26) Creatinine 1.2 mg/dL (0.7-1.3) 1.1 mg/dL (0.7-1.3) Estimated GFR (Cockcroft-Gault) 58.0 77.5 BUN/Creatinine Ratio 26 (6-20) Glucose Level 128 mg/dL (70-99) 93 mg/dL (70-99) Calcium Level 9.0 mg/dL (8.5-10.1) 8.3 mg/dL (8.5-10.1) Total Bilirubin 0.5 mg/dL (0.2-1.0) Aspartate Amino Transf (AST/SGOT) 16 U/L (15-37) Alanine Aminotransferase (ALT/SGPT) 16 U/L (16-63) Alkaline Phosphatase 72 U/L (46-116) Troponin I Quantitative < 0.017 ng/mL (0.000-0.055) Total Protein 7.3 g/dL (6.4-8.2) Albumin 3.4 g/dL (3.4-5.0) Albumin/Globulin Ratio 0.9 (1.0-1.7) Amylase Level 47 U/L (25-115) Lipase 84 U/L (73-393) Urine Collection Type Unknown Urine Color Yellow Urine Clarity Clear Urine pH 5.5 Urine Specific [place] 1.025 Urine Protein Negative mg/dL (NEG-TRACE) Urine Glucose (UA) Negative mg/dL (NEG) Urine Ketones (Stick) 15 mg/dL (NEG) Urine Blood Negative (NEG) Urine Nitrite Negative (NEG) Urine Bilirubin Negative (NEG) Urine Urobilinogen Dipstick 0.2 mg/dL (0.2 mg/dL) Urine Leukocyte Esterase Negative (NEG) Urine RBC 0 /HPF (0-2) Urine WBC Occ /HPF (0-4) Urine Bacteria 0 /HPF (0-FEW) Urine Hyaline Casts Many /HPF Urine Mucus Mod /LPF Medications Current Medications Sodium Chloride 1,000 ml @ 1,000 mls/hr 1X ONCE IV Last administered on at 16:18; Start 06/04/18 at 15:15; Stop 06/04/18 at 16:14; Status DC Ondansetron HCl (Zofran) 4 mg 1X ONCE IV Last administered on 06/04/18 15:15; Start 06/04/18 at 15:15; Stop 06/04/18 at 15:52; Status DC Iohexol (Omnipaque 240 Mg/ml) 30 ml 1X ONCE PO Last administered on 06/04/18at 17:40; Start 06/04/18 at 17:30; Stop 06/04/18 at 17:31; Status DC Iohexol (Omnipaque 300 Mg/ml) 60 ml 1X ONCE IV Last administered on 06/04/18at 17:40; Start 06/04/18 at 17:30; Stop 06/04/18 at 17:31; Status DC Info (CONTRAST GIVEN -- Rx MONITORING) 1 each PRN DAILY PRN MC SEE COMMENTS; Start 06/04/18 at 17:30; Stop 06/06/18 at 17:29 Ondansetron HCl (Zofran) 4 mg PRN Q8HRS PRN IV NAUSEA/VOMITING Last administered on 06/05/18at 05:17; Start 06/04/18 at 19:15; Stop 06/05/18 at 19:14; Status DC Fentanyl Citrate (Fentanyl 2ml Vial) 50 mcg PRN Q1HR PRN IV PAIN; Start at 19:15; Stop 06/05/18 at 19:14; Status DC Sodium Chloride 1,000 ml @ 125 mls/hr Q8H IV Last administered on 06/05/18at 17: 10; Start 06/04/18 at 20:00; Stop 06/05/18 at 19:59; Status DC Acetaminophen (Tylenol) 650 mg PRN Q6HRS PRN PO Fever Last administered on at 11:57; Start 06/05/18 at 01:45 Magnesium Hydroxide (Milk Of Magnesia) 2,400 mg PRN DAILY PRN PO CONSTIPATION; Start 06/05/18 at 13:00 Losartan Potassium (Cozaar) 50 mg DAILY PO Last administered on 06/05/18at 15:46 ; Start 06/05/18 at 13:30 Amlodipine Besylate (Norvasc) 5 mg DAILY PO Last administered on 06/05/18 15:46 ; Start 06/05/18 at 13:30 Active Scripts Active Reported Losartan Potassium 50 Mg Tablet 100 Mg PO DAILY Amlodipine Besylate 5 Mg Tablet 5 Mg PO DAILY Magnesium Oxide 400 Mg Tablet 2 Tab PO DAILY Vitals/I & O Vital Sign - Last 24 Hours 06/05/18 06/05/18 06/05/18 06/05/18 15:20 15:46 15:46 19:36 Temp 98.7 97.5 98.7 97.5 Pulse 75 75 75 72 Resp 16 18 B/P (MAP) 123/50 (74) 123/50 123/50 136/70 (92) Pulse Ox 96 95 O2 Delivery Room Air Room Air 06/05/18 06/05/18 06/06/18 06/06/18 20:00 23:20 03:09 07:00 Temp 98.1 98.7 99.2 98.1 98.7 99.2 Pulse 63 57 75 Resp 19 18 18 B/P (MAP) 142/64 (90) 121/54 (76) 133/71 (91) Pulse Ox 96 100 98 O2 Delivery Room Air Room Air Room Air Room Air 06/06/18 06/06/18 06/06/18 09:00 09:00 11:00 Temp 98.4 98.4 Pulse 75 75 78 Resp 19 B/P (MAP) 133/71 133/71 125/61 (82) Pulse Ox 97 O2 Delivery Room Air Intake and Output 06/05/18 06/05/18 06/06/18 15:00 23:00 07:00 Intake Total 0 ml Output Total 0 ml Balance 0 ml 0 ml MARISA PALUMBO MD Jun 06, 2018 12:15
[2018-06-06 15:00] VITALS: BP 95/65
--- NOTE | 2018-06-06 16:56 | RAD ---
MRI abdomen cholangiopancreatogram without contrast COMPARISON: CT abdomen and pelvis June 04, 2018. TECHNIQUE: Multiplanar MR abdomen sequences were acquired without contrast with 3-D MIP reconstructions of the bile and pancreatic ducts characterize ductal anatomy and pathology. HISTORY: Abdominal pain, dilated common bile duct and dilation of the main pancreatic duct. FINDINGS: Several sequences are motion degraded decreasing sensitivity to characterize pathology. The 3-D acquired sequence is nondiagnostic although the 3-D MIP reconstructions are of some limited evaluation. The common bile duct is dilated with a diameter of 8 mm down to its termination at the head of pancreas and ampulla although no obvious obstructing stone is evident given limitations of this exam is small obstructing stone would be difficult to exclude. The pancreatic duct at the head of the pancreas is within the range of normal measuring 2.7 mm in diameter and tapers towards the tail. No gallstones or inflammatory changes in the gallbladder evident. The stomach demonstrates markedly abnormally thickened rugal folds at the fundus and greater curvature lateral wall of the body to the antrum with a maximum thickness of up to 3.5 cm whereas the mucosa along the lesser curvature is not as thickened. No obstructive changes evident. 1 cm liver cyst right hepatic lobe, 2 cm liver cyst left hepatic lobe and smaller subcentimeter cysts elsewhere within the liver. There is a thin slip of fluid at Morison's pouch and about the right hepatic lobe. Kidneys, adrenals, pancreas, spleen unremarkable. IMPRESSION: 1. Markedly abnormal thickened gastric rugal folds at the fundus and along the greater curvature of the body to the antrum. This could indicate a hypertrophic gastritis or Menetrier's disease. An infiltrative neoplastic process is not excluded. 2. Mild dilation of the common bile duct with a diameter of 8 mm no obvious obstructing stone or stricture evident as described above. Pancreatic duct is normal. Gallbladder are normal. 3. Liver cysts. 4. Thin slip of fluid at Morison's pouch and surrounding the right hepatic lobe of the liver. Electronically signed by: Saurabh Steven MD (06/06/2018 4:53 PM) [facility]
--- NOTE | 2018-06-06 18:01 | NUR ---
Patient had cigarettes in room; stored in patient bin in medication room with patient label. Email Marketing Intern found in patient bed was discarded, per patient request as he denied it was his. Addendum: 06/06/18 at 1806 by JOSEFA BUENO RN Family decided to take cigarettes home, instead of store in medication room.
--- NOTE | 2018-06-06 18:45 | NUR ---
This RN noticed the patient was once again dressed in clean street clothes, over his clean hospital clothing. The family is aware of the patient dressing himself in other clothing and expressed thanks to this RN and staff.
[2018-06-06 19:00] VITALS: BP 152/79
[2018-06-06] MEDS: ACETAMINOPHEN 325 MG TABLET. PO PRN (20:46)
[2018-06-06 23:00] VITALS: BP 144/75
[2018-06-07 03:00] VITALS: BP 135/65
[2018-06-07 07:00] VITALS: BP 120/65
[2018-06-07] MEDS: LOSARTAN POTASSIUM 50 MG TABLET. PO SCH (09:00)
[2018-06-07 10:59] VITALS: BP 129/72
--- NOTE | 2018-06-07 11:02 | NUR ---
SW following for discharge planning. Discussed with RN, pt from home has son as support, pt gets around fine. Pt having an EGD today. RN advised no SW needs at this time. SW will continue to follow.
[2018-06-07 13:39] VITALS: BP 125/70
--- NOTE | 2018-06-07 13:45 | NUR ---
Ate late lunch and tolerated it well. Cont. monitor.
--- NOTE | 2018-06-07 13:51 | PDOC ---
Objective: Vital Signs: Vital Signs Date Time Temp Pulse Resp B/P (MAP) Pulse Ox O2 Delivery O2 Flow Rate FiO2 06/07/18 13:39 98.0 70 18 125/70 (88) 100 Room Air 98.0 Imaging: MRCP IMPRESSION: 1. Markedly abnormal thickened gastric rugal folds at the fundus and along the greater curvature of the body to the antrum. This could indicate a hypertrophic gastritis or Menetrier's disease. An infiltrative neoplastic process is not excluded. 2. Mild dilation of the common bile duct with a diameter of 8 mm no obvious obstructing stone or stricture evident as described above. Pancreatic duct is normal. Gallbladder are normal. 3. Liver cysts. 4. Thin slip of fluid at Morison's pouch and surrounding the right hepatic lobe of the liver. CT A/P IMPRESSION: Dilatation of the biliary tree down into the common bile duct with mild dilatation of the main pancreatic duct. This may be due to a distal common bile duct stone or obstruction. PE: GEN: NAD, thin, seen walking out from room LUNGS: room air HEART: RRR NEURO/PSYCH: A & O 3 A/P: Anorexia/decreased appetite, weight loss H/o PUD Abnormal abd imaging - thickened gastric folds, dilated CBD (8mm), normal PD on MRCP, liver cysts -- Per Dr. Davidson - can instead pursue outpt EGD. Try low-fat diet. PPI. JHOANA ISIDRO Jun 07, 2018 13:51
[2018-06-07] MEDS: amLODIPine BESYLATE 5 MG TABLET PO SCH (14:15)
[2018-06-07] MEDS ORDERED: PANTOPRAZOLE 40 MG TABLET.DR. PO SCH (14:30)
[2018-06-07 14:48] VITALS: BP 175/70
[2018-06-07] MEDS ORDERED: Pantoprazole PO (15:10)
--- NOTE | 2018-06-07 16:00 | NUR ---
Discharge instructions given with prescription. Answered questions and concerns. Verbalized understanding. Discharged home accompanied by daughter.
--- NOTE | 2018-06-07 21:03 | PDOC3 ---
Discharge Summary Visit Information Date of Admission: Jun 04, 2018 Date of Discharge: Jun 07, 2018 Admitting Diagnosis: dilated CBD duct Final Diagnosis Problems Medical Problems: (1) Abdominal pain Status: Acute (2) Nausea Status: Acute Brief Hospital Course Allergies Allergies Coded Allergies Type Severity Reaction Last Updated Verified No Known Drug Allergies 06/04/18 No Vital Signs Vital Signs Date Time Temp Pulse Resp B/P (MAP) Pulse Ox O2 Delivery O2 Flow Rate FiO2 06/07/18 14:48 98.0 70 175/70 (105) 100 Room Air 98.0 06/07/18 13:39 18 Lab Results Laboratory Tests Test 06/06/18 05:25 CA 19-9 Antigen 23 U/mL (0-35) Brief Hospital Course Patient is an 82 year old male with past medical history of hypertension who comes to the ED for complaints of abdominal discomfort. Patient is a poor historian and his only complain during my encounter is that he has been taking Mucinex for about 2 weeks due to congestion and phlegm. He has to be redirectred to the compalint of abdominal discomfort which he does not seem to be very botheredc about at the time of admission. Patient was evaluated in the ED and found to have a mild dilatation of his CBD on CT of the abdomen. Patient denies nausea or vomiting. No recent dietary transgressions O sick contacts or travels outside the area has been reported. Patient denies fever chills no diaphoresis patient denies chest pain. Patient's appetite is adequate admitted stay hydrated. We were asked to admit the patient for evaluation of the abnormality found on CAT scan of his CBD and due to his advanced age. Patient admitted to the medical floor where he was seen in consultation by GI. MRCP was ordered, certain abnormalities were noted which prompted a possible EGD , nevertheless this will be pursued in the outpatient setting. Patient also had adjustment of his blood pressure medications which seemed to be giving him an adverse reaction. Losartan was discontinued and his blood pressure was well controlled. Patient responded well to PPI and will continue with the medication in the outpatient setting. Patient is in good spirits to be discharged home, the secretions that were bothering him prior ot his admission are greatly improved, he will follow up with GI All concerns addressed to the best of my abilities Discharge Information Condition at Discharge: Improved Follow Up: Weeks Disposition/Orders: D/C to Home Scheduled Amlodipine Besylate (Amlodipine Besylate) 5 Mg Tablet, 5 MG PO DAILY for htn, ( Reported) Entered as Reported by: LYN CARVAJAL on 06/05/181206 Last Taken: Unknown Dose on 06/04/181399 Last Action: Last Taken Edited on 06/05/181209 by LYN CARVAJAL Magnesium Oxide (Magnesium Oxide) 400 Mg Tablet, 2 TAB PO DAILY for indigestion , #30 Ref 5 (Reported) Entered as Reported by: LYN CARVAJAL on 06/05/181203 Last Taken: Unknown Dose on 06/04/181399 Last Action: Last Taken Edited on 06/05/181209 by LYN CARVAJAL [Pantoprazole] 40 MG TABLET.DR, 40 MG PO DAILYAC for GERD for 30 Days, #30 Prescribed by: MARISA PALUMBO MD on 06/07/18 1510 Discontinued Medications Losartan Potassium (Losartan Potassium) 50 Mg Tablet, 100 MG PO DAILY for htn, ( Reported) Entered as Reported by: LYN CARVAJAL on 06/05/181206 Last Taken: Unknown Dose on 06/04/181399 Last Action: New Order on 06/05/181206 by MARISA FUNES MD Jun 07, 2018 21:03
== END 2018-06-07 16:00 | disposition home or self-care (01) | DRG 445 ==
LOC: ER 14:25 → 5 SOUTH 19:06
PROVIDERS: ADMIT Internal Medicine; ATTEND Internal Medicine
DX: K83.8 Other specified diseases of biliary tract (principal); Z68.1 Body mass index [BMI] 19.9 or less, adult; I10 Essential (primary) hypertension; K76.89 Other specified diseases of liver; K86.89 Other specified diseases of pancreas; Z87.11 Personal history of peptic ulcer disease; Y92.89 Other specified places as the place of occurrence of the external cause; R63.0 Anorexia; T46.5X5A Adverse effect of other antihypertensive drugs, initial encounter; R63.6 Underweight
CPT/HCPCS: 36415; 74177; 74181; 80048; 80053; 81001; 82150; 83690; 84484; 85025; 86301; 93005; 96361; 96374; J2405; J7030; Q9966; Q9967; 99285-25

== ENCOUNTER 2020-11-02 07:32 | Outpatient (CLI) | payer MEDICARE ==
[~2020-11-02] VITALS: Ht 177.8 cm; Wt 62.0 kg
[2020-11-02] VITALS (10 sets, daily range): BP systolic 114–163; BP diastolic 50–60
[~2020-11-02 07:32] MED LIST: AMLO-186 PO; LOSA50TA15 PO; MAGN400T5 PO; Pantoprazole PO
[2020-11-02] MEDS ORDERED: LIDOCAINE 1% Multi-Dose 20 ML VIAL. ONE (07:49)
[2020-11-02] MEDS ORDERED: IODIXANOL 320 MG/ML 100 ML VIAL. ONE (07:50)
[2020-11-02] MEDS ORDERED: fentaNYL PF VIAL 100 MCG/2 ML VIAL ONE (08:12)
[2020-11-02] MEDS ORDERED: HEPARIN for IV BOLUS 10,000 UNIT/10 ML VIAL. ONE (08:12)
[2020-11-02] MEDS ORDERED: MIDAZOLAM HCL/PF 5 MG/5 ML VIAL. ONE (08:12)
[2020-11-02 08:28] LABS: HEMATOCRIT 39.6 % (39.0-53.0); RED BLOOD COUNT 4.41 x10^6/uL (4.30-5.70); RED CELL DISTRIBUTION WIDTH 13.2 % (11.5-14.5); WHITE BLOOD COUNT 5.6 x10^3/uL (4.0-11.0)
[2020-11-02] MEDS ORDERED: VERAPAMIL 5 MG/2 ML VIAL. ONE (08:40)
[2020-11-02] MEDS ORDERED: NITROGLYCERIN 200 MCG/2 ML SYRINGE FOR CATH/VASC LAB. ONE (08:40)
[2020-11-02 08:43] LABS: CALCIUM 9.6 mg/dL (8.5-10.1); GFR 86.1; POTASSIUM 4.1 mmol/L (3.5-5.1)
[2020-11-02] MEDS ORDERED: LOSA100T14 PO (08:43)
[2020-11-02] MEDS ORDERED: TAMS0.4C97 PO (08:43)
[2020-11-02] MEDS ORDERED: DONE10TA7 PO (08:43)
[2020-11-02] MEDS ORDERED: CHOL400T14 PO (08:43)
[2020-11-02] MEDS ORDERED: CRESTOR5 MG PO (08:43)
[2020-11-02] MEDS ORDERED: FINA5TAB4 PO (08:43)
--- NOTE | 2020-11-02 08:50 | PDOC ---
MODERATE SEDATION ASSESSMENT RISKS/ALTERNATIVES Risks/Alternatives Risks and alternatives of this type of sedation and procedure discussed with: RISK/ALTERNATIVES: Patient H & P ON CHART H & P H & P on chart and reviewed for co-morbid conditions and appropriate labs. H&P ON CHART: Yes STATUS PREG STATUS ASSESSED: N/A MEDS/ALLERGIES REVIEWED Meds/Allergies Reviewed Medications and Allergies including time and route of recently administered narcotics and sedatives. MEDS/ALLERGIES REVIEWED: Yes ASA RATING ASA RATING: II AIRWAY ASSESSMENT Airway Assessment Airway patency, oral function limitations, presence of caps, crowns, dentures, partials, and ability to extend neck assessed. AIRWAY ASSESSMENT: Yes MALLAMPATI SCORE MALLAMPATI SCORE: II PRE-SEDATION ASSESSMENT PRE-SEDATION ASSESSMENT: Yes EDUARDO RUSSELL MD Nov 02, 2020 08:50
[2020-11-02] MEDS ORDERED: NITROGLYCERIN 200 MCG/2 ML SYRINGE FOR CATH/VASC LAB. IART ONE (09:00)
[2020-11-02] MEDS ORDERED: MIDAZOLAM HCL/PF 5 MG/5 ML VIAL. IV ONE (09:00)
[2020-11-02] MEDS ORDERED: LIDOCAINE 1% Multi-Dose 20 ML VIAL. INJ ONE (09:00)
[2020-11-02] MEDS ORDERED: HEPARIN for IV BOLUS 10,000 UNIT/10 ML VIAL. IART ONE (09:00)
[2020-11-02] MEDS ORDERED: fentaNYL PF VIAL 100 MCG/2 ML VIAL IV ONE (09:00)
[2020-11-02] MEDS ORDERED: VERAPAMIL 5 MG/2 ML VIAL. IART ONE (09:00)
[2020-11-02] MEDS ORDERED: IODIXANOL 320 MG/ML 100 ML VIAL. IART ONE (09:00)
[2020-11-02] MEDS ORDERED: IV 1/2 NORMAL SALINE 1,000 ML IV SCH (09:45)
--- NOTE | 2020-11-02 10:05 | CARD ---
MR#: [id number] Date of Study: 11/02/2020 Ordering Physician: EDUARDO GOMEZ, Referring Physician: EDUARDO GOMEZ Tech: Oralia Maciel RT(R) APPROVED REPORT Patient StatusOUT-PATIENT Cold Meat Cook: Oralia Maciel RT(R) Procedure(s) performed: Aortogram with bilateral lower extremity runoff MODERATE SEDATION TIME: 50 MINUTES FLUORO TIME: 7.4 MIN DOSE: 41.2 GYCM2 CONTRAST: 114CC VISI INDICATION FOR PROCEDURE The indication(s) include : Peripheral artery disease with claudication. CASE TECHNIQUE After explaining the risks, benefits, and alternative options, informed consent was obtained from the patient. IV conscious sedation was used throughout procedure with appropriate monitoring and was per formed in the presence of a registered nurse who was an independent trained observer other than the vesta dolan performing the procedure. During this case, Fluoroscopy and low osmolar contrast were used f or imaging. Specimen(s) Removed: No Estimated Blood loss: 15 cc's. PROCEDURE NARRATIVE After explaining the risk, benefits and alternative options, informed consent was obtained from patie nt. Patient was brought to the cardiac [employer] and his right wrist was prepped and draped in the us ual fashion after confirming a positive modified Farshad's test. Arterial access was obtained in the r ight radial artery and a 6 Sami sheath was inserted. A 6 Sami R2P PVI multicurve catheter was th en advanced under fluoroscopic guidance and with the tip positioned in the distal descending aorta, a orto iliac angiography was performed. The catheter was then advanced into the right superficial femo ral artery and selective right lower extremity angiography was performed. The catheter was withdrawn and then advanced into the left superficial femoral artery and selective left lower extremity angiog wil was performed. Patient tolerated the procedure well. Hemostasis was achieved using TR band. There were no immediate complications. FINDINGS 1. No significant stenosis involving the distal descending aorta 2. No significant stenosis involving bilateral common and external iliac arteries 3. No significant stenosis involving bilateral common femoral arteries 4. The right superficial femoral artery did not show any significant stenosis. The left superficial femoral artery showed 60% stenosis in the distal segment. 5. No significant stenosis involving popliteal arteries bilaterally. 6. The right anterior and posterior tibial arteries showed 100% chronic total occlusions with distal reconstitution from collaterals. The peroneal artery showed 80% stenosis in the proximal and mid se gment and 100% chronic occlusion distally. 7. The left tibioperoneal trunk and the proximal segment of peroneal artery showed calcified 90% yakelin nosis. The left anterior tibial artery showed 100% chronic total occlusion with distal reconstitutio n from collaterals. The left posterior tibial artery showed 100% chronic total occlusion. Conclusion Severe below the knee peripheral artery disease as described above. Recommendations Patiemt has below the knee PAD but since patient does not have any nonhealing wounds, we recommend co nservative management with regular exercise regimen and smoking cessation. Signed by : Eduardo Gomez, Electronically Approved : 11/02/2020 10:05:38
--- NOTE | 2020-11-02 12:06 | NUR ---
Discharge Note: RACHEL HERNANDEZ Discharge instructions and discharge home medications reviewed with Family Member and a copy given. All questions have been answered and understanding verbalized. The following instructions and handouts were given: radial site care and adult moderate sedation Discontinued lines and drains: Peripheral IV intact. Patient discharged to Home or Self Care withFamily Membera Wheelchair
--- NOTE | 2020-11-02 12:37 | CARD ---
MR#: [id number] Date of Study: 11/02/2020 Ordering Physician: EDUARDO GOMEZ, Referring Physician: Omar MALDONADO: Cole Stevenson [facility] APPROVED REPORT EXAM: Two-dimensional and M-mode echocardiogram with Doppler and color Doppler. INDICATION Hypertension/HCVD RISK FACTORS Hypertension 2D DIMENSIONS Left Atrium(2D)4.4 (1.6-4.0cm)IVSd0.8 (0.7-1.1cm) Aortic Root(2D)3.7 (2.0-3.7cm)LVDd5.4 (3.9-5.9cm) LVOT Diameter2.2 (1.8-2.4cm)PWd0.9 (0.7-1.1cm) LVDs2.4 (2.5-4.0cm)FS (%) 55.1 % SV122.8 mlLVEF(%)85.4 (>50%) Aortic Valve AoV Peak Dawson.170.7cm/sAoV VTI32.3cm AO Peak GR.11.7mmHgLVOT Peak Dawson.128.2cm/s AO Mean GR.5mmHgAVA (VMAX)2.76cm2 AI P 1/2 [id number] Mitral Valve MV E Fxqyhevq60.2cm/sMV E Peak Gr.8mmHg MV DECEL [id number] A Voxbebgc149.6cm/s MV E Mean Gr.2mmHgE/A Ratio0.9 Pulmonary Valve PV Peak Obezgxrs714.2cm/s Tricuspid Valve TR P. Ddkvnlyp647yi/sTR Peak Gr.38mmHg Pulmonary Vein S1 Gscubujh40.8cm/sD2 Aswkpcev31.8cm/s LEFT VENTRICLE The left ventricle is normal size. There is normal left ventricular wall thickness. The left ventricu lar systolic function is normal. The ejection fraction is 60-65%. There is normal LV segmental wall m otion. Transmitral Doppler flow pattern is Grade I-abnormal relaxation pattern. No left ventricle thr ombus noted on this study. There is no ventricular septal defect visualized. There is no left ventric ular aneurysm. There is no mass noted in the left ventricle. RIGHT VENTRICLE The right ventricle is normal size. There is normal right ventricular wall thickness. The right ventr icular systolic function is normal. ATRIA The left atrium is moderately dilated. The right atrium size is normal. The interatrial septum is int act with no evidence for an atrial septal defect or patent foramen ovale as noted on 2-D or Doppler i maging. AORTIC VALVE The aortic valve is calcified but opens well. Doppler and Color Flow revealed mild aortic regurgitati on. There is no significant aortic valvular stenosis. There is no aortic valvular vegetation. MITRAL VALVE The mitral valve is normal in structure and function. There is no evidence of mitral valve prolapse. There is no mitral valve stenosis. Doppler and Color-flow revealed mild mitral regurgitation. TRICUSPID VALVE The tricuspid valve is normal in structure and function. Doppler and Color Flow revealed mild tricusp id regurgitation. The pulmonary artery systolic pressure is estimated at 40 MMHG. There is no tricusp id valve prolapse or vegetation. There is no tricuspid valve stenosis. PULMONIC VALVE The pulmonary valve is normal in structure and function. Doppler and Color Flow revealed no pulmonic valvular regurgitation. There is no pulmonic valvular stenosis. GREAT VESSELS The aortic root is normal in size. The ascending aorta is normal in size. The pulmonary artery is nor mal. The IVC is normal in size and collapses >50% with inspiration. PERICARDIAL EFFUSION There is no pleural effusion. There is no evidence of significant pericardial effusion. Critical Notification Critical Value: No <Conclusion> The left ventricular systolic function is normal. The ejection fraction is 60-65%. There is normal LV segmental wall motion. Transmitral Doppler flow pattern is Grade I-abnormal relaxation pattern. Mild aortic regurgitation. Mild mitral regurgitation. Mild tricuspid regurgitation. The pulmonary artery systolic pressure is estimated at 40 mmHg. There is no evidence of significant pericardial effusion. Signed by : Eduardo Gomez, Electronically Approved : 11/02/2020 12:37:14
== END 2020-11-02 12:10 | disposition home or self-care (01) ==
LOC: CCL 07:32
PROVIDERS: ATTEND Internal Medicine Cardiovascular Disease
DX: I70.213 Atherosclerosis of native arteries of extremities with intermittent claudication, bilateral legs (principal); I10 Essential (primary) hypertension; F03.90 Unspecified dementia, unspecified severity, without behavioral disturbance, psychotic disturbance, mood disturbance, and anxiety; Z79.899 Other long term (current) drug therapy; Z98.890 Other specified postprocedural states
CPT/HCPCS: 36246; 36415; 75625; 75716; 80048; 85027; 93306; 99152; 99153; C1769; C1894; J1644; J2250; J3010; J3490; Q9967